=== PATIENT | female | born 1995 | race Caucasian/White ===

== ENCOUNTER → 2016-06-05 | Outpatient (CLI) | payer BC ==
[~2016-06-05] MED LIST: ACET325T96 PO; OXYC-57 PO; PRENTAB26 PO
[2016-06-05 14:19] LABS: URINE APPEARANCE CLEAR (CLEAR); URINE BILIRUBIN NEG (NEG); URINE COLOR YELLOW; URINE NITRITE NEG (NEG); URINE PH 6.5 (4.5-7.5); URINE SPECIFIC GRAVITY 1.021 (1.000-1.030); UROBILINOGEN NEG (NEG)
[2016-06-05 14:33] LABS: MANUAL MICROSCOPIC REQUIRED? NO; REVIEW REQ? NO
== END | disposition home or self-care (01) ==
LOC: C.LABSPEC 13:50
PROVIDERS: ATTEND Obstetrics & Gynecology
DX: Z34.01 Encounter for supervision of normal first pregnancy, first trimester (principal)

== ENCOUNTER → 2016-06-07 | Outpatient (CLI) | payer BC ==
[2016-06-07 11:11] LABS: BASO % 0.5 %; BASO ABS # 0.05 K/uL (0-0.2); COMPLETE YES; EOS % 2.6 %; HEMATOCRIT 39.9 % (37-47); IG% 0.5 %; LYMPH % 18.9 %; LYMPH ABS # 1.99 K/uL (1.2-3.4); MEAN CELL VOLUME 87.1 fL (80-100); MEAN CORPUSCULAR HEMOGLOBIN 29.7 pg (25-34); MEAN CORPUSCULAR HGB CONC 34.1 g/dl (32-36); MEAN PLATELET VOLUME 9.5 fL (7.4-10.4); NEUT % 72.5 %; PLATELET COUNT 296 K/uL (130-400); RED BLOOD COUNT 4.58 M/uL (4.2-5.4); WHITE BLOOD COUNT 10.55 K/uL (4.8-10.8)
[2016-06-09 00:26] LABS: CHLAMYDIA TRACH RNA*** NOT DETECTED (NOT DETECTED); GC (NEIS GONORRHOEAE)RNA** NOT DETECTED (NOT DETECTED)
== END | disposition home or self-care (01) ==
LOC: C.LAB1850 09:42
PROVIDERS: ATTEND Obstetrics & Gynecology
DX: Z34.01 Encounter for supervision of normal first pregnancy, first trimester (principal)

== ENCOUNTER → 2016-06-07 | Outpatient (CLI) | payer BC | END | disposition home or self-care (01) | LOC: C.PAPS 12:07 | PROVIDERS: ATTEND Obstetrics & Gynecology | DX: Z12.4 Encounter for screening for malignant neoplasm of cervix (principal); N76.0 Acute vaginitis ==

== ENCOUNTER → 2016-07-06 | Day surgery (SDC) | payer BC ==
[~2016-07-06] VITALS: Ht 160 cm; Wt 82.1 kg
[~2016-07-06] MED LIST changes: +ATROPINE SULFATE 0.1 MG/ML 5ML SYR IV PRN; +DEXAMETHASONE SOD INJ 4 MG/ML VIAL ONE; +DOXYCYCLINE HYCLATE 100 MG CAP PO SCH; +EpHEDrine SULFATE INJ 50 MG/ML AMP IV PRN; +FENTANYL CITRATE INJ 50 MCG/1 ML 2 ML VIAL IV PRN; +FENTANYL CITRATE INJ 50 MCG/1 ML 2 ML VIAL ONE; +IBUPROFEN 600 MG TAB PO PRN; +KETOROLAC TROMETHAMINE 30 MG/ML VIAL IV. PRN; +KETOROLAC TROMETHAMINE 30 MG/ML VIAL ONE; +LACTATED RINGER'S 1000ML 1,000 ML IV SCH; +LIDOCAINE HCL 2% 2 ML VIAL (20MG/ML) ONE; +METHYLERGONOVINE MALEATE 0.2 MG TAB PO ONE; +METHYLERGONOVINE MALEATE 0.2 MG TAB PO SCH; +MIDAZOLAM HCL 1 MG/ML 2ML VIAL ONE; +ONDANSETRON INJ 2 MG/ML 2 ML VIAL IV PRN; +ONDANSETRON INJ 2 MG/ML 2 ML VIAL ONE; +OXYCODONE/ACETAMINOPHEN 5-325 TAB PO PRN; +PROPOFOL IV EMULSION 10 MG/ML 20 ML VIAL IV ONE; +SODIUM CHLORIDE 0.9% 1000ML 1,000 ML IV SCH
[2016-07-06 06:21] VITALS: BP 133/71; PULSE 81; TEMP 36.8; O2SAT 99; Ht 160 cm; Wt 82.1 kg
--- NOTE | 2016-07-06 07:26 | History & Physical Bridge Note ---
H&P Re-Evaluation Bridge Note: I have examined the patient, reviewed the History & Physical and in the interval since the performance of the History & Physical I have noted the following changes of clinical significance: No changes noted
--- NOTE | 2016-07-06 08:43 | [facility] Post Operative Brief Note ---
Immediate Operative Summary Operative Date Jul 06, 2016. Pre-Operative Diagnosis Missed , twins Post-Operative Diagnosis Missed , twins Procedure(s) Performed Dilation and evacuation and curettage Surgeon Dr Sawant Tassel Clipper Surgeon(s) none Estimated Blood Loss 10ml Findings uterus sounds to 10cm preprocedure, small and mobile postprocedure. large POCs. Fluids (cc crystalloids) 600 Specimens A: Products of conception Drains none Anesthesia general Complication(s) None Disposition Recovery Room / PACU
[2016-07-06 09:00] VITALS: BP 123/74; PULSE 72; TEMP 36.9; O2SAT 99
[2016-07-06 09:30] VITALS: BP 122/68; PULSE 75; TEMP 36.7; O2SAT 99
--- NOTE | 2016-07-06 09:40 | Discharge Instructions ---
Discharge Instructions Date of Service Jul 06, 2016. Admission Reason for Admission: Missed Discharge Discharge Diagnosis / Problem: after surgery Discharge Goals Goal(s): Routine recovery after surgery Activity Recommendations Activity Limitations: as noted below ACTIVITY RECOMMENDATIONS: * Avoid tampons, douching, hot tubs, pools, and intercourse until bleeding has stopped. * May shower as usual. * No strenuous activity for 24-48 hours. After 24-48 hours, you may do anything you feel like doing (driving and sports are okay). MEDICATIONS: take methergine tablet by mouth every 6hrs for 3 doses, first dose at home at 1pm today belt picker the other prescription from your pharmacy and take that as directed. SPECIAL CARE INSTRUCTIONS: Special Diet: * Mild nausea may occur in the immediate post-operative period. * Take clear liquids such as tea, cola or bouillon until all nausea has subsided; you may then resume your normal diet. Special Care: * Light bleeding and vaginal spotting can last from a few days to 3-4 weeks. Call your doctor if bleeding becomes heavier than the heaviest part of your period. * Check your temperature twice a day for one week. If it goes above 100.4 degrees Fahrenheit (38.0 Celsius), notify your doctor. * Call your doctor's office for an appointment for 2 weeks after your surgery. FOLLOW-UP VISIT: Call your doctor's office for an appointment for 2 weeks after your surgery. . Current Hospital Diet Patient's current hospital diet: Discharge Diet Recommended Diet: Regular Diet Procedures Procedures Performed: Dilation and evacuation and curettage Pending Studies Studies pending at discharge: yes List of pending studies: pathology Medical Emergencies . Who to Call and When: Medical Emergencies: If at any time you feel your situation is an emergency, please call 911 immediately. . Non-Emergent Contact Non-Emergency issues call your: Outer Diameter Technician . . "Provider Documentation" section prepared by Ana Maria Sawant. VTE Core Measure Inpt VTE Proph given/why not?: Treatment not indicated
--- NOTE | 2016-07-06 09:43 | Anesthesiology Progress Note ---
Anesthesia Post Op Note Date & Time Jul 06, 2016 at 09:40 Vital Signs Pain Intensity: 6.5 Vital Signs Past 12 Hours Date Time Temp Pulse Resp B/P Pulse Ox O2 Delivery O2 Flow Rate FiO2 07/06/16 09:00 36.9 72 16 123/74 99 Room Air 07/06/16 08:50 37 72 16 122/78 98 Room Air 07/06/16 08:41 123/78 07/06/16 08:39 74 12 07/06/16 08:39 74 12 98 07/06/16 08:36 119/74 07/06/16 08:34 79 13 97 07/06/16 08:34 77 13 07/06/16 08:31 121/71 07/06/16 08:29 78 15 07/06/16 08:29 77 15 97 07/06/16 08:26 118/74 07/06/16 08:24 75 12 98 07/06/16 08:24 73 12 07/06/16 08:21 130/81 07/06/16 08:19 76 12 100 07/06/16 08:19 76 12 07/06/16 08:16 127/93 07/06/16 08:15 138/78 07/06/16 08:14 81 100 07/06/16 08:14 81 07/06/16 08:14 36.0 78 16 138/78 100 Mask 10 07/06/16 06:21 36.8 81 18 133/71 99 Room Air Notes Mental Status: alert / awake / arousable, participated in evaluation Pt Amnestic to Procedure: Yes Nausea / Vomiting: adequately controlled Pain: adequately controlled Airway Patency, RR, SpO2: stable & adequate BP & HR: stable & adequate Hydration State: stable & adequate Anesthetic Complications: no major complications apparent
--- NOTE | 2016-07-06 09:53 | OPERATIVE REPORT ---
DATE OF OPERATION: 07/06/2016 PREOPERATIVE DIAGNOSIS: Missed , twins. POSTOPERATIVE DIAGNOSIS: Same. PROCEDURES: Dilatation and evacuation and curettage. SURGEON: Dr. Ana Maria Sawant. PIZZA COOK: None. IV FLUIDS: 600 mL. ESTIMATED BLOOD LOSS: 10 mL. ANESTHESIA: General. FINDINGS: Uterus preprocedure sounds to 10 cm. Small and mobile uterus post-procedure. Large amount of products of conception. INDICATIONS: A 20-year-old 1, para 0 who was found to have a twin intrauterine at 9+ weeks with no heart tones x2. This is consistent with twin demise. The patient was given her treatment options and alternatives and opted for surgical therapy. DESCRIPTION OF PROCEDURE: The patient was taken to the operating room and identified. After adequate general anesthesia was obtained, she was placed in the dorsal lithotomy position and prepped and draped in the usual sterile fashion. The bladder was drained for clear, yellow urine. A weighted speculum and anterior retractor were used to visualize the cervix which was grasped on its anterior lip with an Allis clamp. The cervix was sequentially dilated using Hegar dilators to 25. The 8 mm suction curette was gently placed through the cervical os into the uterine cavity after the uterus sounded to 10 cm. Uterus was cleared of its contents in multiple passes. A sharp curettage was performed to a gritty consistency and additional passes of the suction curette took place to clear the uterus of remaining tissue and blood. IM Methergine 0.2 mg was given to the patient. The Allis clamp was removed as well as the retractors. The patient was returned to the supine position and was delivered from anesthesia and transferred to the recovery room in stable condition. All sponge, lap, needle counts were correct x2. I attest to the content of the Intraoperative Record and any orders documented therein. Any exceptio ns are noted below.
[2016-07-06 10:07] VITALS: BP 123/71; PULSE 75; TEMP 36.6; O2SAT 98
== END | disposition home or self-care (01) ==
LOC: C.ACU 05:59
PROVIDERS: ATTEND Obstetrics & Gynecology
DX: O02.1 Missed abortion (principal); Z80.3 Family history of malignant neoplasm of breast; Z80.41 Family history of malignant neoplasm of ovary

== ENCOUNTER 2016-11-25 19:17 | Emergency (ER) | payer BC ==
[~2016-11-25] VITALS: Ht 160 cm; Wt 79.0 kg
[2016-11-25 19:20] VITALS: TEMP 36.6; Ht 160 cm; Wt 79.0 kg
[2016-11-25 20:18] LABS: HEMATOCRIT 44.3 % (37-47); MEAN CORPUSCULAR HEMOGLOBIN 28.5 pg (25-34); MEAN CORPUSCULAR HGB CONC 33.2 g/dl (32-36); MEAN PLATELET VOLUME 9.6 fL (7.4-10.4); PLATELET COUNT 288 K/uL (130-400); RED BLOOD COUNT 5.15 M/uL (4.2-5.4)
[2016-11-25] MEDS ORDERED: PRENTAB26 PO (20:26)
[2016-11-25 20:46] LABS: BUN/CREATININE RATIO 10.8 (10-20); CALCIUM 9.2 mg/dl (8.5-10.1); CREATININE 0.76 mg/dl (0.60-1.20); POTASSIUM 3.4 mmol/L (3.5-5.1)
[2016-11-25 22:31] VITALS: O2SAT 99
--- NOTE | 2016-11-25 22:33 | DIAGNOSTIC IMAGING REPORT ---
TRANSVAGINAL AND TRANSABDOMINAL ULTRASOUND CLINICAL HISTORY: 5 week preg bleeding and left sided pelvic pain COMPARISON STUDY: None. FINDINGS: The uterus measures 8.2 x 4.5 x 5.4 cm. The endometrial stripe measures 1.6 cm in thickness. No definite intrauterine gestational sac identified. 2 cm complex fluid collection seen at the fundus of the endometrium. Ovaries are normal in size and demonstrate normal color flow. There is a 2.1 cm complex cyst within the left ovary. This likely represents a corpus luteum. Small to moderate amount of complex fluid within the pelvic cul-de-sac. This fluid also extends into the right adnexa. No adnexal masses identified. IMPRESSION: 1. Small to moderate amount of complex fluid within the pelvis. This could represent hemoperitoneum. 2. No definite intrauterine gestational sac identified. There is a thickened endometrium with a small amount of fluid at the fundus. Given the positive test, this could be seen in the setting of a recent spontaneous , early intrauterine gestation, or nonvisualized ectopic . Follow-up beta-hCG and/or pelvic ultrasound is recommended. Electronically signed by: Tenzin Caballero M.D. 11/25/2016 10:32 PM Dictated Date/Time: 11/25/2016 10:27 PM
--- NOTE | 2016-11-25 23:11 | EMERGENCY ROOM VISIT NOTE ---
History Report prepared by Zachariah: Odalis Hawley Under the Supervision of: Dr. John Thomas M.D. First contact with patient: 19:23 Chief Complaint: PELVIC PAIN Stated Complaint: PELVIC AND BACK PAIN L SIDE, BLEEDING 5 WKS History of Present Illness The patient is a 21 year old female who presents to the Emergency Room with complaints of an episode of pelvic pain starting two hours ago. The patient states that she believes she is potentially 4-5 weeks . She states that she has been experiencing vaginal bleeding for four hours. She notes it is about a pad an hour. The patient states that she is also experiencing back pain and nausea. The patient currently rates her pain as a 7/10 in severity. The patient notes that she had a miscarriage of twins in june of this year. The patient denies pain with urination, pain in her legs, and abnormal bowel movements. She notes that she has had a blood transfusion before, but when she was in middle school. Source of History: patient Onset: two hours ago Position: pelvis Symptom Intensity: 7/10 Quality: other (global) Timing: other (episode) Associated Symptoms: + nausea, + back pain Note: The patient complains of vaginal bleeding. The patient denies pain with urination, pain in her legs, and abnormal bowel movements. Review of Systems All systems have been listed, reviewed, and are negative other than those previously mentioned. Please see Additional Medical History Sheet. Past Medical & Surgical Medical Problems: (1) No pertinent past medical history Surgical Problems: (1) dilation and evacuation Family History Cancer Diabetes mellitus Heart disease Hypertension Kidney disease Kidney stones Lung disease Seizures Social History Smoking Status: Former Smoker Alcohol Use: none Drug Use: none Marital Status: in relationship Housing Status: lives with significant other Occupation Status: employed Current/Historical Medications Scheduled Multivit/Min/Iron/Fol Ac/Pren ( Vitamin), 1 TAB PO DAILY Allergies Coded Allergies: No Known Allergies (Unverified , 07/06/16) Physical Exam Vital Signs Date Time Temp Pulse Resp B/P (MAP) Pulse Ox O2 Delivery O2 Flow Rate FiO2 11/25/16 23:22 76 111/71 83 123/82 89 128/74 11/25/16 22:31 71 20 118/75 99 Room Air 11/25/16 20:59 70 18 115/65 98 Room Air 11/25/16 19:20 36.6 87 16 147/101 99 Room Air Physical Exam GENERAL: Patient awake, alert, oriented x 3. Patient follows commands. Patient does not appear toxic. Patient is adequately hydrated and well- nourished. SKIN: No erythema, pallor, cyanosis or rash HEENT: Normal head, pupils equal, reactive to light and accommodation. LUNGS: Clear to auscultation. No wheezes, no rales, no rhonchi. HEART: No murmurs. No gallops. No rubs ABDOMEN: Vague left sided tenderness. No masses, no rebound, no guarding, no hepatomegaly or splenomegaly. PELVIC: Has less than 5 cc of blood in the vaginal vault. Os is closed to ring forceps. Right adnexa is nontender. Uterus is not significantly large. Left adnexa is tender. EXTREMITIES: No signs of trauma or infection. NEUROLOGIC: Cranial nerves II-XII within normal limits. No gross motor sensory function deficits. Medical Decision & Procedures ER Provider Diagnostic Interpretation: Radiology results as stated below per my review and radiologist interpretation: TRANSVAGINAL AND TRANSABDOMINAL ULTRASOUND CLINICAL HISTORY: 5 week preg bleeding and left sided pelvic pain COMPARISON STUDY: None. FINDINGS: The uterus measures 8.2 x 4.5 x 5.4 cm. The endometrial stripe measures 1.6 cm in thickness. No definite intrauterine gestational sac identified. 2 cm complex fluid collection seen at the fundus of the endometrium. Ovaries are normal in size and demonstrate normal color flow. There is a 2.1 cm complex cyst within the left ovary. This likely represents a corpus luteum. Small to moderate amount of complex fluid within the pelvic cul-de-sac. This fluid also extends into the right adnexa. No adnexal masses identified. IMPRESSION: 1. Small to moderate amount of complex fluid within the pelvis. This could represent hemoperitoneum. 2. No definite intrauterine gestational sac identified. There is a thickened endometrium with a small amount of fluid at the fundus. Given the positive test, this could be seen in the setting of a recent spontaneous , early intrauterine gestation, or nonvisualized ectopic . Follow-up beta-hCG and/or pelvic ultrasound is recommended. Electronically signed by: Tenzin Caballero M.D. 11/25/2016 10:32 PM Dictated Date/Time: 11/25/2016 10:27 PM Laboratory Results 11/25/16 20:10 11/25/16 20:10 Test 11/25/16 20:10 Red Blood Count 5.15 M/uL (4.2-5.4) Mean Corpuscular Volume 86.0 fL (80-100) Mean Corpuscular Hemoglobin 28.5 pg (25-34) Mean Corpuscular Hemoglobin Concent 33.2 g/dl (32-36) RDW Standard Deviation 40.6 fL (36.4-46.3) RDW Coefficient of Variation 12.9 % (11.5-14.5) Mean Platelet Volume 9.6 fL (7.4-10.4) Anion Gap 8.0 mmol/L (3-11) Est Creatinine Clear Calc Drug Dose 114.6 ml/min Estimated GFR () 128.1 Estimated GFR (Non- 110.6 BUN/Creatinine Ratio 10.8 (10-20) Calcium Level 9.2 mg/dl (8.5-10.1) Human Chorionic Gonadotropin, Quant 978 mIU/mL Laboratory results as stated above per my review. ED Course 1924: Past medical records reviewed. The patient was evaluated in room A11B. A complete history and physical examination was performed. 1943: Retrieved from old records, the patient was found to be B+ blood type. 2253: I reevaluated the patient and talked to her about her ultrasound and blood work. She is doing okay. 2299: Discussed the patient's case with Dr. Vitale. He suggested the patient go home and follow up in the office in the next two days. 2304: Upon reevaluation, the patient appeared to have improvement of her symptoms. I discussed today's findings with the patient. She verbalized agreement of the treatment plan. The patient was discharged home. Medical Decision Differential diagnoses include ectopic , ovarian cyst, ovarian torsion , threatened AB. The patient is here with left lower quadrant abdominal pain and some vaginal bleeding. The patient thinks that she is about 5 weeks . Multiple labs and imaging were performed. Please see above. There is some concern for an ectopic although that seems unlikely. The patient's quantitative beta hCG is low if she is truly 5 weeks . That will need to be repeated. The patient is not orthostatic and is felt to be stable for discharge home. I discussed care with Dr. Vitale over the phone. His office will see the patient within the next 48 hours. Medication Reconcilliation Current Medication List: was personally reviewed by me Blood Pressure Screening Patient's blood pressure: Normal blood pressure Blood pressure disposition: Did not require urgent referral Consults Time Called: 2257 Consulting Physician: Dr. Vitale- OB-RETAIL REPRESENTATIVE Returned Call: 2300 Discussed the patient's case with Dr. Vitale. He suggested the patient go home and follow up in the office in the next two days. Impression Primary Impression: Pelvic pain affecting Scribe Attestation The scribe's documentation has been prepared under my direction and personally reviewed by me in its entirety. I confirm that the note above accurately reflects all work, treatment, procedures, and medical decision making performed by me. Departure Information Dispostion Home / Self-Care Referrals No Doctor, Assigned (PCP) Forms HOME CARE DOCUMENTATION FORM, IMPORTANT VISIT INFORMATION, WORK / SCHOOL INSTRUCTIONS Patient Instructions My [facility] Additional Instructions Call [facility] obstetrics/gynecology tomorrow morning for an appointment time. REST Off work for the next 2 days. Return here sooner if your pain or bleeding gets much worse. 650 mg of Tylenol every 4 hours as needed for pain.
[2016-11-25 23:22] VITALS: BP 128/74; PULSE 89
== END 2016-11-25 23:42 | disposition home or self-care (01) ==
LOC: C.EDB 19:19 → C.EDA 23:42
DX: O26.891 Other specified pregnancy related conditions, first trimester (principal); R10.2 Pelvic and perineal pain; Z87.891 Personal history of nicotine dependence

== ENCOUNTER 2016-11-27 11:31 | Emergency (ER) | payer BC ==
[~2016-11-27] VITALS: Ht 160 cm; Wt 78.0 kg
[~2016-11-27 11:31] MED LIST changes: -ACET325T96 PO; +CEFAZOLIN 2000 MG/60 ML D5W 60 ML IV SCH; -OXYC-57 PO
[2016-11-27 11:41] VITALS: Ht 160 cm; Wt 78.0 kg
[2016-11-27] MEDS ORDERED: ACET325T96 PO (12:21)
[2016-11-27 12:28] LABS: ISTAT CREATININE 0.6 mg/dl (0.6-1.3); ISTAT HEMOGLOBIN 13.6 g/dl (12.0-16.0); ISTAT IONIZED CALCIUM 1.17 mmol/l (1.12-1.32)
[2016-11-27] MEDS ORDERED: SODIUM CHLORIDE 0.9% 1000ML 1,000 ML IV STA (12:28)
[2016-11-27 12:56] LABS: BASO % 0.6 %; BASO ABS # 0.06 K/uL (0-0.2); COMPLETE YES; EOS % 2.3 %; HEMATOCRIT 38.7 % (37-47); IG% 0.3 %; LYMPH % 22.1 %; LYMPH ABS # 2.11 K/uL (1.2-3.4); MEAN CORPUSCULAR HEMOGLOBIN 29.2 pg (25-34); MEAN CORPUSCULAR HGB CONC 33.6 g/dl (32-36); MEAN PLATELET VOLUME 9.6 fL (7.4-10.4); MONO % 4.7 %; PLATELET COUNT 286 K/uL (130-400); RED BLOOD COUNT 4.45 M/uL (4.2-5.4); WHITE BLOOD COUNT 9.56 K/uL (4.8-10.8)
[2016-11-27 12:59] LABS: BUN/CREATININE RATIO 10.3 (10-20); CALCIUM 8.6 mg/dl (8.5-10.1); CREATININE 0.7 mg/dl (0.60-1.20); POTASSIUM 3.8 mmol/L (3.5-5.1)
[2016-11-27 13:07] LABS: PARTIAL THROMBOPLASTIN RATIO 1.1; PROTHROMBIN TIME (PATIENT) 10.7 SECONDS (9.0-12.0)
[2016-11-27 13:12] LABS: URINE APPEARANCE CLOUDY (CLEAR); URINE BILIRUBIN NEG (NEG); URINE COLOR YELLOW; URINE NITRITE NEG (NEG); URINE SPECIFIC GRAVITY 1.026 (1.000-1.030); UROBILINOGEN NEG (NEG)
[2016-11-27 13:15] LABS: MANUAL MICROSCOPIC REQUIRED? NO; REVIEW REQ? YES
--- NOTE | 2016-11-27 13:24 | DIAGNOSTIC IMAGING REPORT ---
CT ABD/PELVIS IV CONTRAST ONLY CLINICAL HISTORY: Left lower quadrant abdominal pain COMPARISON STUDY: Pelvic ultrasound dated 11/25/2016 TECHNIQUE: Following the IV administration of 93 mL of Optiray-320, CT scan of the abdomen and pelvis was performed from the lung bases to the proximal femurs. Images are reviewed in the axial, sagittal, and coronal planes. IV contrast was administered without complication. A dose lowering technique was utilized adhering to the principles of ALARA. CT DOSE: 372.93 mGy.cm FINDINGS: Lower chest: The heart is normal in size and configuration, without pericardial effusion. The lung bases and pleural spaces are clear. Liver: The contrast-enhanced liver is normal in size, contour, and attenuation. There is no intrahepatic biliary ductal dilatation. The hepatic veins and portal veins are patent. Gallbladder: Unremarkable. Spleen: Normal in size and attenuation. Pancreas: Unremarkable. Adrenal glands: Unremarkable. Kidneys: There is symmetric renal cortical enhancement. The kidneys are normal in size without hydronephrosis. Bowel: There are no transition zones indicate bowel obstruction. There is no acute diverticulitis. There is no acute appendicitis. Peritoneum: There is complex free pelvic fluid, possibly hemorrhagic. This could represent a ruptured ovarian cyst, or the setting of a ruptured ectopic. Vasculature: The abdominal aorta is normal in course and caliber. Adenopathy: None. Pelvic viscera: No bladder abnormalities are visualized. There is a cystic structure in the left adnexa. This could represent an ovarian cyst, or the setting of and ectopic . Skeletal structures: No destructive osseous lesions are seen. IMPRESSION: 1. Probable increase in the complex free pelvic fluid, likely representing hemoperitoneum 2. Likely diagnostic considerations include a ruptured hemorrhagic cyst, or in the setting of , a ruptured ectopic. Correlation with quantitative beta hCGs is recommended. Electronically signed by: Nacho Reza M.D. 11/27/2016 1:22 PM Dictated Date/Time: 11/27/2016 1:13 PM
--- NOTE | 2016-11-27 13:38 | EMERGENCY ROOM VISIT NOTE ---
History Report prepared by Zachariah: Sam Becker Under the Supervision of: Dr. Thee Tao M.D. 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 She also complains of vaginal bleeding. The patient was seen in the ED two days ago for vaginal bleeding and was referred to her OBGYN with concerns of possible ectopic . She was seen by her OBGYN earlier today and was referred to the ED for continued pain. The patient states that her pain is worse than it was two days ago. Her pain is worsened with movement. Source of History: patient Onset: a few days ago Position: other (pelvic area) Timing: worsening Modifying Factors (Worsening): movement Note: Additional symptoms: vaginal bleeding. Review of Systems See HPI for pertinent positives & negatives. A total of 10 systems reviewed and were otherwise negative. Past Medical & Surgical Medical Problems: (1) No pertinent past medical history Surgical Problems: (1) dilation and evacuation Family History Cancer Diabetes mellitus Heart disease Hypertension Kidney disease Kidney stones Lung disease Seizures Social History Smoking Status: Former Smoker Alcohol Use: none Drug Use: none Marital Status: in relationship Housing Status: lives with significant other Occupation Status: employed Current/Historical Medications Scheduled PRN Acetaminophen Tab (Tylenol), 650 MG PO UD PRN for Pain Oxycodone/Acetaminophen 5MG/325MG (Percocet 5MG/325MG), 1 TAB PO Q4H PRN for Pain (pain scale 1-5) Allergies Coded Allergies: No Known Allergies (Unverified , 11/27/16) Physical Exam Vital Signs Date Time Temp Pulse Resp B/P (MAP) Pulse Ox O2 Delivery O2 Flow Rate FiO2 11/27/16 18:25 37.3 88 18 141/80 100 Room Air 11/27/16 17:55 83 16 118/76 95 Room Air 11/27/16 17:21 36.6 68 16 125/69 95 Room Air 11/27/16 17:15 64 12 109/79 98 Nasal Cannula 2 11/27/16 17:00 82 13 114/67 94 Nasal Cannula 2 11/27/16 16:50 65 15 116/59 97 Room Air 11/27/16 16:40 36.5 64 18 120/70 98 Room Air 11/27/16 16:30 66 20 111/71 93 Room Air 11/27/16 16:20 62 12 131/75 100 Oxymask 10 11/27/16 16:10 75 15 129/89 100 Oxymask 10 11/27/16 16:01 36.8 68 14 128/82 99 Oxymask 10 11/27/16 14:30 37.1 73 18 103/69 (80) 100 Room Air 11/27/16 14:20 72 18 121/71 100 11/27/16 14:01 75 15 124/81 100 Room Air 11/27/16 13:45 70 11/27/16 13:27 65 15 109/79 99 11/27/16 12:48 99 Room Air 11/27/16 11:41 36.9 Physical Exam GENERAL: Patient is a healthy-appearing well-nourished female HEAD: Normocephalic atraumatic EYES: Ocular movements intact pupils equal and react to light OROPHARYNX mucous membranes are moist no exudates present no erythema or edema present NECK: Supple no nuchal rigidity CHEST: Good equal expansion LUNGS: Clear and equal to auscultation CARDIAC: Normal S1 and S2 ABDOMEN: No guarding. Diffuse abdominal tenderness to palpation, more prominent in the LLQ. BACK: No CVA tenderness EXTREMITIES: No pain upon palpation normal muscle strength in all groups no clubbing cyanosis or edema NEURO: Patient is following commands and answering questions appropriately. Alert and oriented x3 Cranial Nerves 2-12 grossly intact Medical Decision & Procedures ER Provider Diagnostic Interpretation: CT results as stated below per my review and radiologist interpretation: CT ABD/PELVIS IV CONTRAST ONLY FINDINGS: Lower chest: The heart is normal in size and configuration, without pericardial effusion. The lung bases and pleural spaces are clear. Liver: The contrast-enhanced liver is normal in size, contour, and attenuation. There is no intrahepatic biliary ductal dilatation. The hepatic veins and portal veins are patent. Gallbladder: Unremarkable. Spleen: Normal in size and attenuation. Pancreas: Unremarkable. Adrenal glands: Unremarkable. Kidneys: There is symmetric renal cortical enhancement. The kidneys are normal in size without hydronephrosis. Bowel: There are no transition zones indicate bowel obstruction. There is no acute diverticulitis. There is no acute appendicitis. Peritoneum: There is complex free pelvic fluid, possibly hemorrhagic. This could represent a ruptured ovarian cyst, or the setting of a ruptured ectopic. Vasculature: The abdominal aorta is normal in course and caliber. Adenopathy: None. Pelvic viscera: No bladder abnormalities are visualized. There is a cystic structure in the left adnexa. This could represent an ovarian cyst, or the setting of and ectopic . Skeletal structures: No destructive osseous lesions are seen. IMPRESSION: 1. Probable increase in the complex free pelvic fluid, likely representing hemoperitoneum 2. Likely diagnostic considerations include a ruptured hemorrhagic cyst, or in the setting of , a ruptured ectopic. Correlation with quantitative beta hCGs is recommended. Electronically signed by: Nacho Reza M.D. 11/27/2016 1:22 PM Dictated Date/Time: 11/27/2016 1:13 PM Laboratory Results 11/27/16 12:15 Red Blood Count 4.45, Mean Corpuscular Volume 87.0, Mean Corpuscular Hemoglobin 29.2, Mean Corpuscular Hemoglobin Concent 33.6, Mean Platelet Volume 9.6, Neutrophils (%) (Auto) 70.0, Lymphocytes (%) (Auto) 22.1, Monocytes (%) (Auto) 4.7, Eosinophils (%) (Auto) 2.3, Basophils (%) (Auto) 0.6, Neutrophils # (Auto) 6.69, Lymphocytes # (Auto) 2.11, Monocytes # (Auto) 0.45, Eosinophils # (Auto) 0.22, Basophils # (Auto) 0.06 11/27/16 12:15 Test 11/27/16 12:00 11/27/16 12:15 11/27/16 12:17 11/27/16 12:55 Prothrombin Time 10.7 SECONDS (9.0-12.0) Prothromb Time International Ratio 1.0 (0.9-1.1) Activated Partial Thromboplast Time 27.5 SECONDS (21.0-31.0) Partial Thromboplastin Ratio 1.1 White Blood Count 9.56 K/uL (4.8-10.8) Red Blood Count 4.45 M/uL (4.2-5.4) Hemoglobin 13.0 g/dL (12.0-16.0) Hematocrit 38.7 % (37-47) Mean Corpuscular Volume 87.0 fL (80-100) Mean Corpuscular Hemoglobin 29.2 pg (25-34) Mean Corpuscular Hemoglobin Concent 33.6 g/dl (32-36) Platelet Count 286 K/uL (130-400) Mean Platelet Volume 9.6 fL (7.4-10.4) Neutrophils (%) (Auto) 70.0 % Lymphocytes (%) (Auto) 22.1 % Monocytes (%) (Auto) 4.7 % Eosinophils (%) (Auto) 2.3 % Basophils (%) (Auto) 0.6 % Neutrophils # (Auto) 6.69 K/uL (1.4-6.5) Lymphocytes # (Auto) 2.11 K/uL (1.2-3.4) Monocytes # (Auto) 0.45 K/uL (0.11-0.59) Eosinophils # (Auto) 0.22 K/uL (0-0.5) Basophils # (Auto) 0.06 K/uL (0-0.2) RDW Standard Deviation 41.9 fL (36.4-46.3) RDW Coefficient of Variation 13.0 % (11.5-14.5) Immature Granulocyte % (Auto) 0.3 % Immature Granulocyte # (Auto) 0.03 K/uL (0.00-0.02) Est Creatinine Clear Calc Drug Dose 123.6 ml/min Estimated GFR () 141.5 Estimated GFR (Non- 122.1 BUN/Creatinine Ratio 10.3 (10-20) Calcium Level 8.6 mg/dl (8.5-10.1) Total Bilirubin 0.3 mg/dl (0.2-1) Aspartate Amino Transf (AST/SGOT) 11 U/L (15-37) Alanine Aminotransferase (ALT/SGPT) 21 U/L (12-78) Alkaline Phosphatase 80 U/L (45-117) Total Protein 7.5 gm/dl (6.4-8.2) Albumin 3.7 gm/dl (3.4-5.0) Globulin 3.8 gm/dl (2.5-4.0) Albumin/Globulin Ratio 1.0 (0.9-2) Human Chorionic Gonadotropin, Quant 450 mIU/mL Bedside Hemoglobin 13.6 g/dl (12.0-16.0) Bedside Hematocrit 40 % (37-47) Bedside Sodium 140 mEq/L (135-144) Bedside Potassium 3.8 mEq/L (3.3-5.0) Bedside Chloride 105 mEq/L (101-112) Bedside Total CO2 22 mEq/l (24-31) Anion Gap 17.0 mmol/L (16-25) Bedside Blood Urea Nitrogen 6 mg/dl (7-18) Bedside Creatinine 0.6 mg/dl (0.6-1.3) Bedside Glucose (other) 97 mg/dl (70-99) Bedside Ionized Calcium (Brandy) 1.17 mmol/l (1.12-1.32) Urine Color YELLOW Urine Appearance CLOUDY (CLEAR) Urine pH 7.0 (4.5-7.5) Urine Specific [place] 1.026 (1.000-1.030) Urine Protein TRACE (NEG) Urine Glucose (UA) NEG (NEG) Urine Ketones NEG (NEG) Urine Occult Blood 3+ (NEG) Urine Nitrite NEG (NEG) Urine Bilirubin NEG (NEG) Urine Urobilinogen NEG (NEG) Urine Leukocyte Esterase NEG (NEG) Urine WBC (Auto) 1-5 /hpf (0-5) Urine RBC (Auto) 0-4 /hpf (0-4) Urine Hyaline Casts (Auto) 1-5 /lpf (0-5) Urine Epithelial Cells (Auto) 10-20 /lpf (0-5) Urine Bacteria (Auto) 1+ (NEG) Urine Yeast (Auto) (NONE PRSENT) Urine Test NEG (NEG) Labs reviewed by ED physician. Medications Administered Medications (Trade) Dose Ordered Sig/Yeyo Route Start Time Stop Time Status Last Admin Dose Admin Sodium Chloride 1,000 ml @ 999 mls/hr Q1H1M STAT IV 11/27/16 12:28 11/27/16 13:28 DC 11/27/16 12:28 999 MLS/HR Ondansetron HCl (Zofran Inj) 4 mg STK-MED ONCE .ROUTE 11/27/16 16:06 11/27/16 16:07 DC 11/27/16 16:10 4 MG Fentanyl Citrate (Fentanyl Inj) 25 mcg Q5M PRN IV 11/27/16 16:15 11/27/16 20:45 DC 11/27/16 16:32 25 MCG Promethazine HCl 12.5 mg/Sodium Chloride 50.5 ml @ 202 mls/hr ONE PRN IV 11/27/16 16:15 11/27/16 20:45 DC 11/27/16 16:52 202 MLS/HR Ketorolac Tromethamine (Toradol Inj) 30 mg STK-MED ONCE .ROUTE 11/27/16 16:57 11/27/16 16:58 DC 11/27/16 16:59 30 MG Oxycodone/ Acetaminophen (Percocet 5-325mg Tab) 1 tab STK-MED ONCE .ROUTE 11/27/16 17:37 11/27/16 17:38 DC 11/27/16 17:41 1 TAB Oxycodone/ Acetaminophen (Percocet 5-325mg Tab) 1 tab STK-MED ONCE .ROUTE 11/27/16 18:29 11/27/16 18:30 DC 11/27/16 18:31 1 TAB ED Course 1234: Past medical records reviewed. The patient was evaluated in room C11. A complete history and physical examination was performed. She declines anything for pain at this time. 1228: Ordered Sodium Chloride 1000 ml @ 999 mls/hr IV. 1340: Upon reexamination the patient is resting. I discussed results and treatment plan with the patient. She verbalizes agreement and understanding. I spoke with Dr. Orozco from [facility]. The patient will be evaluated for further management. Medical Decision Differential diagnosis: Etiologies such as ectopic , dysfunction uterine bleeding, bleeding dyscrasia, trauma, infection, as well as others were entertained. This is a 21-year-old female who presents emergency department complaining of left lower quadrant abdominal pain. 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 The patient is willing to have a CAT scan performed. This was concerning for increasing hemoperitoneum. The patient's hemoglobin has dropped from [address] Orozco came down and independently evaluated the patient and decided to bring the patient to the operating room. The patient was given normal saline bolus and was in agreement with the treatment plan. Consults Time Called: 1230 Consulting Phys[facility] Returned Call: 1234 I discussed the patient's case with Dr. Orozco. She requests a CT. 1335: I updated Dr. Orozco on the patient's CT results. She will come evaluate the patient. Impression Primary Impression: Hemoperitoneum Scribe Attestation The scribe's documentation has been prepared under my direction and personally reviewed by me in its entirety. I confirm that the note above accurately reflects all work, treatment, procedures, and medical decision making performed by me. Departure Information Dispostion Being Evaluated By Surgeon Prescriptions Oxycodone/Acetaminophen 5MG/325MG (PERCOCET 5MG/325MG) Tab 1 TAB PO Q4H Y for Pain (pain scale 1-5), #15 TAB PAIN Prov: Addie Orozco MD 11/27/16 Referrals No Doctor, Assigned (PCP) Patient Instructions [facility]
[2016-11-27] MEDS ORDERED: LACTATED RINGER'S 1000ML 1,000 ML IV SCH (13:54)
[2016-11-27 14:20] VITALS: O2SAT 100
[2016-11-27] MEDS ORDERED: PROPOFOL IV EMULSION 10 MG/ML 20 ML VIAL IV ONE (14:29)
[2016-11-27] MEDS ORDERED: DEXAMETHASONE SOD INJ 4 MG/ML VIAL ONE (14:29)
[2016-11-27] MEDS ORDERED: GLYCOPYRROLATE INJ 0.2 MG/ML VIAL ONE ×2 (14:29→16:09)
[2016-11-27] MEDS ORDERED: NEOSTIGMINE METHYLSULFATE 5 MG/5 ML SYR ONE (14:29)
[2016-11-27] MEDS ORDERED: LIDOCAINE HCL 2% 2 ML VIAL (20MG/ML) ONE (14:29)
[2016-11-27] MEDS ORDERED: MIDAZOLAM HCL 1 MG/ML 2ML VIAL ONE (14:29)
[2016-11-27] MEDS ORDERED: FENTANYL CITRATE INJ 50 MCG/1 ML 2 ML VIAL ONE (14:29)
[2016-11-27] MEDS ORDERED: ROCURONIUM BROMIDE 10 MG/ML 5 ML VIAL ONE (14:29)
[2016-11-27] MEDS ORDERED: ONDANSETRON INJ 2 MG/ML 2 ML VIAL ONE ×2 (14:29→16:06)
[2016-11-27] MEDS ORDERED: CEFAZOLIN IV 2,000 MG/60 ML D5W IV ONE (14:46)
--- NOTE | 2016-11-27 14:57 | History & Physical Bridge Note ---
H&P Re-Evaluation Bridge Note: I have examined the patient, reviewed the History & Physical and in the interval since the performance of the History & Physical I have noted the following changes of clinical significance: Dictation of full H&P currently not yet available for signature. Briefly, pt with either MAB and corpus luteum rupture / abdominal pain or Ectopic with suspected rupture and hemoperitoneum / abdominal pain. Diagnostic laparoscopy is planned. If hemoperitoneum and ectopic are found, removal with possible salpingectomy vs oophorectomy are planned.
[2016-11-27] MEDS ORDERED: HYDROmorphone INJ 2 MG/ML SYR/VIAL ONE (15:22)
[2016-11-27] MEDS ORDERED: SODIUM CHLORIDE 0.9% INJ 10 ML VIAL ONE (15:27)
--- NOTE | 2016-11-27 16:10 | HISTORY & PHYSICAL EXAMINATION ---
DATE OF ADMISSION: 11/27/2016 HISTORY OF PRESENT ILLNESS: Padmaja Arauz is a 21-year-old -0-1-0 with a which should be 5 weeks and 2 days by last menstrual period. The patient presented to our emergency department on November 25, 2 days ago with complaints of pelvic and back pain. She also noted at the time of presentation to the ER that she was experiencing vaginal bleeding for about the prior 4 hours. At that time a beta hCG was done and was resulted as 978 and an ultrasound which was done which showed a normal sized uterus without a definite intrauterine . There was a 2 cm complex fluid collection near the fundal end of the endometrium that was not definitive for a gestational sac. There was a 2.1 cm complex cyst within the left ovary felt to represent a corpus luteum and a small to moderate amount of complex fluid in the cul-de-sac. The patient was sent home with ectopic precautions and follow up in the office today, November 27. On the , the patient presented to the office as planned. She had a quant that had fallen to 478. She was seen by Dr. Vitale who felt that there was both rebound and guarding present on his exam per his verbal report to myself. Because of the patient's pain as well as the complaint of increased vaginal bleeding which is now quite heavy since the time she was seen in the ER, she was referred back to the Emergency Department for reassessment. Dr. Vitale's concern was that she had a hemoperitoneum with possible ruptured ectopic . Here in the Emergency Department, the patient was evaluated by Dr. Tao who did feel that there was some diffuse abdominal tenderness. The patient of note declined any pain medications when it was offered to her. She says her pain is not that bad. She is, however, vaginally bleeding quite heavily. A CAT scan was done as the patient felt unable to tolerate a repeat of the transvaginal ultrasound that had been performed the weekend visit and that imaging was reviewed by myself. There is noted to be an interval increase in the amount of complex free pelvic fluid which is likely consistent with hemoperitoneum and in the left adnexa there continues to be a cystic structure which may be a corpus luteum or may be an ectopic and cannot be defined as one or the other on the basis of this imaging. I have discussed this with the patient and offered her options. She is diffusely tender to palpation and winces with repositioning; however, continues to decline pain medicine and is able to speak fluently and smile while conversing with me. It is difficult to decipher whether she is undergoing a spontaneous which is causing her some significant but not inappropriate belly pain versus whether this is in fact an ectopic in the left adnexa which is causing internal bleeding and therefore the hemoperitoneum we may be seeing on imaging. I have offered laparoscopy which would be diagnostic laparoscopy and in the event that I am able to identify a bleeding lesion or ectopic that could be excised with either a salpingostomy, salpingectomy or oophorectomy as indicated by the location of the lesion if indeed one is identified. The patient prefers to proceed with surgery at this time. She was fully consented with the risks and benefits being discussed. Those risks being pain, bleeding, infection, injury to internal organs, change in her fertility status and/or earlier onset of menopause depending on which if any structures may need to be removed during the procedure today. Her fiance is here with her today. They asked appropriate questions. Those questions were answered to their satisfaction and she wishes to proceed. Review of records was undertaken. PAST MEDICAL HISTORY: Negative for any chronic disease. She specifically denies hypertension and diabetes. MEDICATIONS: Currently are only vitamins. ALLERGIES: No known drugs. PAST SURGICAL HISTORY: The patient underwent a D&E for a prior missed in early 2016. Otherwise, negative. FAMILY HISTORY: Is notable for both breast and ovarian cancers. SOCIAL HISTORY: This is a nonsmoking, female who denies use of alcohol or recreational drugs. She is accompanied by her fiance today who she describes as being named Darion. It is unclear to me on the basis of my observation of this partner whether this is a same sex partner or perhaps a gender transitioning partner. I did ask Padmaja whether this was conceived with the aid of any fertility treatments versus spontaneous conception and she states that this was conceived spontaneously. PHYSICAL EXAMINATION: VITAL SIGNS: Currently, temperature 36.9, pulse 65, respiration rate 15, blood pressure 109/79, pulse ox 99 on room air. GENERAL: She is alert and when seated still is in no acute distress; however, when asked to reposition she winces and voluntarily guards. LUNGS: Clear to auscultation. HEART: Shows regular rate and rhythm. ABDOMEN: Mildly obese, diffusely tender. There is no fluid wave. She is more tender with palpation in the left lower quadrant and there is some rebound primarily in the right lower quadrant. GENITOURINARY: Deferred except that I do observe she is wearing a pad which is blood stained currently. EXTREMITIES: Within normal limits. NEUROLOGIC: She appears to be grossly intact. PSYCHIATRIC: Although she is uncomfortable she appears to be oriented and making appropriate decisions. ASSESSMENT AND PLAN: As per the HPI above. The plan will be to take her for a diagnostic laparoscopy with possible salpingectomy versus oophorectomy to excise an ectopic in the event one is identified. Padmaja is aware that at this point I cannot be certain she has an ectopic and it is possible she is simply miscarrying in which case this will be a diagnostic laparoscopy that will ultimately not change the course of her miscarriage. She understands and accepts that risk and wishes to proceed.
[2016-11-27] MEDS ORDERED: ONDANSETRON INJ 2 MG/ML 2 ML VIAL IV PRN ×2 (16:15→16:30)
[2016-11-27] MEDS ORDERED: PROMETHAZINE HCL INJ 12.5 MG in SODIUM CHLORIDE 0.9% 50ML 50 ML IV PRN (16:15)
[2016-11-27] MEDS ORDERED: ATROPINE SULFATE 0.1 MG/ML 5ML SYR IV PRN (16:15)
[2016-11-27] MEDS ORDERED: SODIUM CHLORIDE 0.9% 1000ML 1,000 ML IV SCH (16:18)
[2016-11-27] MEDS: FENTANYL CITRATE INJ 50 MCG/1 ML 2 ML VIAL IV PRN ×3 (16:22→16:32)
[2016-11-27] MEDS ORDERED: OXYC-57 PO (16:24)
--- NOTE | 2016-11-27 16:25 | Discharge Instructions ---
Discharge Instructions Date of Service Nov 27, 2016. Visit Reason for Visit: Ectopic with rupture Discharge Discharge Diagnosis / Problem: Left tubal ectopic with rupture and hemoperitoneum Discharge Goals Goal(s): Specific goals Activity Recommendations Activity Limitations: per Instructions/Follow-up section Anesthesia . Post Anesthesia Instructions: If you have had General Anesthesia or IV Sedation: * Do not drive today. * Resume driving when surgeon permits. * Do not make important decisions or sign legal documents today. * Call surgeon for: 1. Temperature elevations greater than 101 degrees F. 2. Uncontrollable pain. 3. Excessive bleeding. 4. Persistent nausea and vomiting. 5. Medication intolerance (nausea, vomiting or rash). * For nausea and vomiting use only clear liquids such as: tea, soda, bouillon until nausea subsides, then gradually increase diet as tolerated. * If you have any concerns or questions, call your surgeon's office. If physician is unavailable and it is an emergency, call 911 or go to the nearest emergency room. . Instructions / Follow-Up Instructions / Follow-Up ACTIVITY RECOMMENDATIONS: * Rest the first 2-3 days. You should be back to your normal activity levels by day 3. * No heavy lifting for 2 weeks. * No intercourse, tampons or douching for 2 weeks. * You may shower the next day. * Do not drive anytime that you are taking narcotic pain medicines. RETURN TO SCHOOL/WORK: * May return to school or work after 5 days. DIET: Nausea may occur in the immediate post-operative period. If so, take clear liquids such as tea, bouillon, apple juice until all nausea has subsided, then resume usual diet. MEDICATIONS: Resume previous medications unless instructed otherwise by your surgeon. Ibuprofen 200mg 2-3 tablets every 4-6 hours as needed -- OR -- Aleve 2 tablets every 8-12 hours as needed for post-operative discomfort Medications are over the counter. Tylenol may be used if above medications are contraindicated or not preferred. Medication should be taken with food or milk. Do not take on an empty stomach. SPECIAL CARE INSTRUCTIONS: * Check temperature twice daily for one week. report any elevation over 101 degrees. * You may experience some vagina spotting and/or bleeding. This is normal for 1 -2 weeks and should not be heavier than a normal period. If it is unusual in amount, call your physician. * Post-operative discomfort may consist of a sore throat, a "bloated" feeling and pain in the shoulders. these are normal symptoms, which usually only last for 2-3 days. FOLLOW UP VISIT: Call your doctor's office for a post-operative 2 week visit if not already scheduled. Diet Recommendations Recommended Home Diet: resume previous diet Procedures Procedures Performed: Laparoscopic Left Salpingectomy Pending Studies Studies pending at discharge: no Medical Emergencies . Who to Call and When: Medical Emergencies: If at any time you feel your situation is an emergency, please call 911 immediately. . Non-Emergent Contact Non-Emergency issues call your: Primary Care Provider . . "Provider Documentation" section prepared by Addie Orozco. . [place] Drug Monitoring Program Search Results: no issues identified
[2016-11-27] MEDS ORDERED: KETOROLAC TROMETHAMINE 30 MG/ML VIAL IV. PRN (16:30)
[2016-11-27] MEDS ORDERED: OXYCODONE/ACETAMINOPHEN 5-325 TAB PO PRN ×2 (16:30)
[2016-11-27] MEDS ORDERED: MoRPHine SULFATE 4 MG/ML 1 ML CARP\\VIAL IV PRN (16:30)
[2016-11-27] MEDS ORDERED: IBUPROFEN 600 MG TAB PO PRN (16:30)
[2016-11-27] MEDS ORDERED: MoRPHine SULFATE 2 MG/ML CARP IV PRN (16:30)
--- NOTE | 2016-11-27 16:39 | Anesthesiology Progress Note ---
Anesthesia Post Op Note Date & Time Nov 27, 2016 at 16:39 Vital Signs Vital Signs Past 12 Hours Date Time Temp Pulse Resp B/P (MAP) Pulse Ox O2 Delivery O2 Flow Rate FiO2 11/27/16 16:30 66 20 111/71 93 Room Air 11/27/16 16:20 62 12 131/75 100 Oxymask 10 11/27/16 16:10 75 15 129/89 100 Oxymask 10 11/27/16 16:01 36.8 68 14 128/82 99 Oxymask 10 11/27/16 14:30 37.1 73 18 103/69 (80) 100 Room Air 11/27/16 14:20 72 18 121/71 100 11/27/16 14:01 75 15 124/81 100 Room Air 11/27/16 13:45 70 11/27/16 13:27 65 15 109/79 99 11/27/16 12:48 99 Room Air 11/27/16 11:41 36.9 Notes Mental Status: alert / awake / arousable, participated in evaluation Pt Amnestic to Procedure: Yes Nausea / Vomiting: adequately controlled Pain: adequately controlled Airway Patency, RR, SpO2: stable & adequate BP & HR: stable & adequate Hydration State: stable & adequate Anesthetic Complications: no major complications apparent
--- NOTE | 2016-11-27 16:40 | OPERATIVE REPORT ---
DATE OF OPERATION: 11/27/2016 PREOPERATIVE DIAGNOSIS: Suspected left ectopic with hemoperitoneum. POSTOPERATIVE DIAGNOSIS: Confirmed left tubal ectopic with hemoperitoneum. PROCEDURE: Laparoscopic left salpingectomy and evacuation of hemoperitoneum. SURGEON: Dr. Orozco. SPECIMENS: [id number]. COMPLICATIONS: None. DISPOSITION: Stable to recovery room. OPERATION AND FINDINGS: DESCRIPTION: Padmaja is a 21-year-old with a falling quant and evidence of possible adnexal cystic structure on the left with likely hemoperitoneum. She was brought to the operating room, placed on the table in the dorsal lithotomy position with Yellofin stirrups, prepped and draped in standard sterile fashion and a hard time-out was taken prior to proceeding. A Cheng was placed. Entry was then made in the abdomen via an optical umbilical entry. This was without complication. There was immediately noted to be some blood in the abdomen. The abdomen was insufflated. After the patient was placed in partial Trendelenburg a right lower quadrant port was placed under direct visualization. Suction irrigation was then used to remove 250 mL of clot. A left lower quadrant port was placed under direct visualization. The patient was taken partly out of Trendelenburg in order to allow the remainder of the hemoperitoneum to flow back into the pelvis and suction was used to remove that. The patient was then placed in full Trendelenburg and additional suction was used to remove clot which was seen adherent to a grossly dilated left fallopian tube. The total measured amount of clot removed was 380 mL. Left fallopian tube was then grasped and elevated and a Harmonic scalpel was used to excise the left fallopian tube. Photographs were taken showing a normal ovary on each side, a normal remaining right fallopian tube. Additionally, a normal appendix with some adhesive disease in the right lower quadrant was identified. The camera was then switched to a 5 mm camera through the right lower quadrant port while an EndoCatch bag was placed through the 12 mm umbilical port and used to grasp and remove the fallopian tube. The fallopian tube was opened lengthwise on the field and a clump of clot and tissue consistent with likely ectopic was noted inside the dilated portion of the tube. This full specimen will be sent for examination on pathology. The final exam of all working sites revealed good hemostasis. All hemoperitoneum had been evacuated. The patient was then placed back in flat position. All ports and instruments were removed. The umbilical site was closed with a UR-6 at the fascial layer and a 4-0 Monocryl at the skin. All sites were sealed with Dermabond. The Cheng was removed and the patient was transferred in stable condition to the recovery room. I attest to the content of the Intraoperative Record and any orders documented therein. Any exception s are noted below.
[2016-11-27] MEDS ORDERED: KETOROLAC TROMETHAMINE 30 MG/ML VIAL ONE (16:57)
[2016-11-27 17:21] VITALS: BP 125/69; PULSE 68; TEMP 36.6; O2SAT 95
[2016-11-27] MEDS ORDERED: OXYCODONE/ACETAMINOPHEN 5-325 TAB ONE ×2 (17:37→18:29)
[2016-11-27 17:55] VITALS: BP 118/76; PULSE 83; O2SAT 95
[2016-11-27 18:25] VITALS: BP 141/80; PULSE 88; TEMP 37.3; O2SAT 100
== END 2016-11-27 18:55 | disposition home or self-care (01) ==
LOC: C.EDB 11:33 → C.EDC 18:55
DX: K66.1 Hemoperitoneum (principal); Z83.3 Family history of diabetes mellitus; Z82.49 Family history of ischemic heart disease and other diseases of the circulatory system; Z82.0 Family history of epilepsy and other diseases of the nervous system; Z87.891 Personal history of nicotine dependence

== ENCOUNTER → 2016-11-27 | Outpatient (CLI) | payer BC ==
[~2016-11-27] MED LIST changes: -ATROPINE SULFATE 0.1 MG/ML 5ML SYR IV PRN; -DEXAMETHASONE SOD INJ 4 MG/ML VIAL ONE; -DOXYCYCLINE HYCLATE 100 MG CAP PO SCH; -EpHEDrine SULFATE INJ 50 MG/ML AMP IV PRN; -FENTANYL CITRATE INJ 50 MCG/1 ML 2 ML VIAL IV PRN; -FENTANYL CITRATE INJ 50 MCG/1 ML 2 ML VIAL ONE; -IBUPROFEN 600 MG TAB PO PRN; -KETOROLAC TROMETHAMINE 30 MG/ML VIAL IV. PRN; -KETOROLAC TROMETHAMINE 30 MG/ML VIAL ONE; -LACTATED RINGER'S 1000ML 1,000 ML IV SCH; -LIDOCAINE HCL 2% 2 ML VIAL (20MG/ML) ONE; -METHYLERGONOVINE MALEATE 0.2 MG TAB PO ONE; -METHYLERGONOVINE MALEATE 0.2 MG TAB PO SCH; -MIDAZOLAM HCL 1 MG/ML 2ML VIAL ONE; -ONDANSETRON INJ 2 MG/ML 2 ML VIAL IV PRN; -ONDANSETRON INJ 2 MG/ML 2 ML VIAL ONE; -OXYCODONE/ACETAMINOPHEN 5-325 TAB PO PRN; -PROPOFOL IV EMULSION 10 MG/ML 20 ML VIAL IV ONE; -SODIUM CHLORIDE 0.9% 1000ML 1,000 ML IV SCH
== END | disposition home or self-care (01) ==
LOC: C.LAB1850 09:50
PROVIDERS: ATTEND Obstetrics & Gynecology
DX: O20.0 Threatened abortion (principal); Z3A.00 Weeks of gestation of pregnancy not specified